=== PATIENT | female | born 1985 | race Caucasian/White ===

== ENCOUNTER 2019-04-13 20:35 | Inpatient (IN) | payer BC ==
[~2019-04-13] VITALS: Ht 170.2 cm; Wt 102.5 kg
[2019-04-13] MEDS ORDERED: TYLENOL W/CODEI1 TAB PO (20:41)
[2019-04-13 21:06] LABS: APPEARANCE CLEAR (CLEAR); BILIRUBIN NEGATIVE (NEGATIVE); COLOR YELLOW (YELLOW); GLUCOSE NEGATIVE (NEGATIVE); KETONE NEGATIVE (NEGATIVE); NITRITE NEGATIVE (NEGATIVE); PROTEIN TRACE mg/dL (NEGATIVE); UROBILINOGEN NORMAL (NORMAL)
[2019-04-13 21:08] LABS: BACTERIA FEW /hpf (NONE SEEN); EPITHELIAL CELLS 0-5 /hpf (0-5); HCG URINE NEGATIVE (NEGATIVE); MUCUS <1+ /lpf (NONE SEEN); RED CELLS - URINE 0-5 /hpf (0-5); WHITE CELLS - URINE 0-5 /hpf (0-5)
[2019-04-13 21:17] LABS: BASOPHILS 0.3 % (0-2); EOSINOPHILS 2.6 % (0-7); IMMATURE GRANULOCYTES 0.3 % (0-5); MCH 30.4 pg (26.0-34.0); MCHC 35.1 g/dL (31.0-37.0); MCV 86.7 fL (80.0-100.0); MEAN PLATELET VOLUME 8.9 fL (7.4-10.4); MONOCYTES 7.1 % (2-11); NEUTROPHILS 82.7 % (40-80); PLATELET COUNT 353 10x3/uL (130-400); RBC 4.27 10x6/uL (4.00-5.40); RDW 12.9 % (11.5-14.5); WBC 15.2 10x3/uL (4.8-10.8)
[2019-04-13 21:29] LABS: ALKALINE PHOSPHATASE 78 U/L (46-116); ALT (SGPT) 19 U/L (10-68); BILIRUBIN - TOTAL 0.41 mg/dL (0.2-1.3); CALC OSMOLALITY 270 mosm/kg (275-300); CALCIUM 8.5 mg/dL (8.5-10.1); CARBON DIOXIDE 26.2 mmol/L (21.0-32.0); CHLORIDE - SERUM 101 mmol/L (98-107); CREATININE - SERUM 0.9 mg/dL (0.6-1.3); GLUCOSE 106 mg/dL (74-106); POTASSIUM - SERUM 4.6 mmol/L (3.5-5.1); PROTEIN - SERUM 7.2 g/dL (6.4-8.2); SODIUM 135 mmol/L (136-145); UREA NITROGEN 14 mg/dL (7-18); eGFR NON AFRICAN AMERICAN 75 mL/min (90-120)
[2019-04-14] VITALS (7 sets, daily range): BP systolic 113–145; BP diastolic 65–84
--- NOTE | 2019-04-14 00:30 | NUR ---
RECEIVED PT FROM ER VIA WHEELCHAIR, ACCOMPAINIED BY SPOUSE AND STAFF. IV TO THE RT HAND INFUSING BOLUS OF NS AND ABX. SITE IS CLEAN WITHOUT SWELLING OR REDNESS. PT COMPLAINS OF 10/10 PAIN IN THE GROIN AREA AND IS TENDER TO THE RLQ, LLQ UPON PALPATION. FIRM MASSES NOTED AROUND PUBIC AREA, MORE PREDOMINANT ON THE LT SIDE. A/O WITH NO SIGNS OF ACUTE DISTRESS NOTED. EDUCATIED PT ON PAIN MEDS AND DIET. DENIES NEEDS AT THIS TIME. CONTINUE WITH PLAN OF CARE.
--- NOTE | 2019-04-14 02:34 | NUR ---
COMPLAINING OF PAIN AT IV SITE IN THE RT HAND WITH NO BLOOD RETURN. DC WITH CATH INTACT. RESITED IV TO THE LT FOREARM. CONTINUE WITH PLAN OF CARE.
[2019-04-14 05:40] LABS: BASOPHILS 0.2 % (0-2); EOSINOPHILS 2.3 % (0-7); HEMATOCRIT 35.2 % (36.0-48.0); HEMOGLOBIN 12.1 g/dL (12-16); IMMATURE GRANULOCYTES 0.3 % (0-5); LYMPHOCYTES 8.4 % (15-50); MCH 29.8 pg (26.0-34.0); MCHC 34.4 g/dL (31.0-37.0); MCV 86.7 fL (80.0-100.0); MEAN PLATELET VOLUME 8.8 fL (7.4-10.4); MONOCYTES 8.4 % (2-11); NEUTROPHILS 80.4 % (40-80); PLATELET COUNT 334 10x3/uL (130-400); RBC 4.06 10x6/uL (4.00-5.40); RDW 12.8 % (11.5-14.5); WBC 14.6 10x3/uL (4.8-10.8)
[2019-04-14 05:54] LABS: CALC OSMOLALITY 277 mosm/kg (275-300); CALCIUM 8.1 mg/dL (8.5-10.1); CARBON DIOXIDE 26.8 mmol/L (21.0-32.0); CHLORIDE - SERUM 106 mmol/L (98-107); CREATININE - SERUM 0.7 mg/dL (0.6-1.3); GLUCOSE 103 mg/dL (74-106); MAGNESIUM - SERUM 1.7 mg/dL (1.8-2.4); SODIUM 140 mmol/L (136-145); eGFR NON AFRICAN AMERICAN > 90 mL/min (90-120)
[2019-04-14 05:58] LABS: UREA NITROGEN 9 mg/dL (7-18)
--- NOTE | 2019-04-14 07:24 | NUR ---
PATIENT EASY TO WAKE. AT BEDSIDE. NO FURTHER NEEDS AT THIS TIME. CL IN REACH TM
--- NOTE | 2019-04-14 13:09 | NUR ---
SCD'S ON. TELEMETRY APPLIED RUNNING 97 SR. IV THERAPY CHANGED TO LEFT WRIST. CL IN PLACE FAMILY IN ROOM. WCTM
[2019-04-14 13:52] LABS: APTT 37.3 SECONDS (22.8-39.4); INR 1.1 (0.85-1.17); PROTIME 13.7 SECONDS (11.6-15.0)
[2019-04-14 16:35] LABS: ERYTHROCYTE SEDIMENTATION RATE 62 mm/hr (0-20)
[2019-04-15] VITALS: BP 141/77
--- NOTE | 2019-04-15 03:00 | NUR ---
PT C/O RIGHT HAND IV HURTING AFTER GETTING IT CAUGHT ON SOMETHING WHILE GOING TO THE BATHROOM. REMOVED IV CATHETER INTACT. RESITED 20G IV TO LEFT WRIST BY JUANCARLOS JARAMILLO. GAVE MORPHINE 4 MG IV PUSH FOR PAIN 03/09. NO OTHER NEEDS. WILL CONTINUE TO MONITOR.
[2019-04-15 05:00] VITALS: BP 119/71
[2019-04-15 06:29] LABS: BASOPHILS 0.3 % (0-2); EOSINOPHILS 2.3 % (0-7); HEMATOCRIT 35.1 % (36.0-48.0); HEMOGLOBIN 11.9 g/dL (12-16); IMMATURE GRANULOCYTES 0.3 % (0-5); MCH 29.2 pg (26.0-34.0); MCHC 33.9 g/dL (31.0-37.0); MONOCYTES 7.5 % (2-11); NEUTROPHILS 82.6 % (40-80); PLATELET COUNT 324 10x3/uL (130-400); RBC 4.08 10x6/uL (4.00-5.40); RDW 12.6 % (11.5-14.5); WBC 13.6 10x3/uL (4.8-10.8)
[2019-04-15 06:47] LABS: ALBUMIN 2.5 g/dL (3.4-5.0); ALKALINE PHOSPHATASE 66 U/L (46-116); ALT (SGPT) 14 U/L (10-68); BILIRUBIN - TOTAL 0.49 mg/dL (0.2-1.3); CALC OSMOLALITY 277 mosm/kg (275-300); CALCIUM 8.1 mg/dL (8.5-10.1); CARBON DIOXIDE 27.2 mmol/L (21.0-32.0); CHLORIDE - SERUM 106 mmol/L (98-107); CREATININE - SERUM 0.6 mg/dL (0.6-1.3); GLUCOSE 96 mg/dL (74-106); MAGNESIUM - SERUM 1.8 mg/dL (1.8-2.4); POTASSIUM - SERUM 3.9 mmol/L (3.5-5.1); PROTEIN - SERUM 6.4 g/dL (6.4-8.2); SODIUM 141 mmol/L (136-145); UREA NITROGEN 5 mg/dL (7-18); eGFR NON AFRICAN AMERICAN > 90 mL/min (90-120)
[2019-04-15 11:49] VITALS: BP 111/62
[2019-04-15 13:57] VITALS: Ht 170.2 cm; Wt 102.5 kg
--- NOTE | 2019-04-15 14:36 | MORECARE ---
CASE MANAGEMENT DISCHARGE SUMMARY PATIENT: MIRNA MALIN UNIT: [id number] ADM DATE: 04/13/19 AGE: 33 : [birth year] SEX: F ROOM/BED: D.2239 AUTHOR: JERSON PAIGE PHYSICIAN: REFERRING PHYSICIAN: LUI MCLEAN MD DATE OF SERVICE: 04/15/19 Discharge Plan Patient Name: MIRNA MALIN Facility: [facility]:[place] : 1985 Planned Disposition: Home Anticipated Discharge Date: Discharge Date: Expected LOS: Initial Reviewer: [email or web address] Initial Review Date: 04/15/2019 Generated: 04/15/19 3:36 pm Comments DCP- Discharge Planning Updated by [email or web address]: Rosaline Batista on 04/15/19 1:[address] Patient Name: MIRNA MALIN Admission Status: ER Accout number: [id number] Admission Date: 04-13-2019 : 1985 Admission Diagnosis: Attending: LUI MCLEAN Current LOS: 2 Anticipated DC Date: Planned Disposition: Home Primary Insurance: [employer] OUT OF STATE Discharge Planning Comments: CM met with patient at bedside after explaining CM role and obtaining verbal consent. CM discussed availability / needs of home health and medical equipment. Patient denies any discharge needs at this time. STATES PLANS TO DC TO HOME WITH . CM TO FOLLOW AND ASSIST NEEDED. Tar Heat Exchanger Cleaner: Rosaline Batista DCPIA - Discharge Planning Initial Assessment Updated by [email or web address]: Rosaline Batista on 04/15/19 2:29 pm * Is the patient Alert and Oriented? Yes * PCP MEGHNA * Pharmacy [facility] * Preadmission Environment Home with Family * ADLs Independent * Equipment None * Community resources currently utilized None * Additional services required to return to the preadmission environment? No * Can the patient safely return to the preadmission environment? Yes * Has this patient been hospitalized within the prior 30 days at any hospital? No Patient Name: MIRNA MALIN Page [phone] at 1436 All edits/amendments must be made on the electronic document DICTATION DATE: 04/15/19 1436 CANCELING AND CUTTING CONTROL CLERK: WASHINGOTN 04/15/19 1436 RPT#: [id number] DC DATE: STATUS: ADM IN [facility] [address] [place] [address] END OF REPORT
[2019-04-15 18:43] VITALS: BP 130/68
--- NOTE | 2019-04-15 18:45 | NUR ---
I have reviewed this patient and I concur with the Shift Assessment completed by the Licensed Practical Nurse today this shift.
[2019-04-15 19:53] VITALS: BP 129/72
--- NOTE | 2019-04-15 20:35 | OP ---
PATIENT NAME: MIRNA MALIN MEDICAL RECORD: [id number] :[birth year] LOCATION:D.MS Cruz2239 ADMISSION DATE:04/13/19 SURGEON: AXEL العلي MD DATE OF OPERATION: 04/15/2019 SURGEON: Axel العلي MD ANESTHESIA: General anesthesia by Baltazar Friedman. DIAGNOSES: Widespread lymphadenopathy, bladder wall thickening on the right side. Possible lymphoma. PROCEDURE: Cystoscopy and bladder biopsy. FINDINGS: Single ureteral orifices bilaterally. No papillary bladder tumors. However, there are some hilly irregularities on the right lateral wall. SPECIMENS: Right lateral bladder wall times 2, bladder dome times 1 biopsy. ESTIMATED BLOOD LOSS: Minimal. CLINICAL HISTORY: This is a 33-year-old female with a history of night sweats, fevers and widespread lymphadenopathy on CT scan. Dr. Rosales has performed a left inguinal lymph node biopsy. Her CT also shows thickening of the bladder wall on the right side. I will be performing a bladder biopsy to check for lymphoma infiltration into the bladder. SHE IS ALLERGIC TO PENICILLIN. She was given Levaquin IV secondary education professor to the OR. The patient has already been given general anesthetic. DESCRIPTION OF PROCEDURE: She was placed into lithotomy position and prepped and draped. A 21-Colombian cystoscope was placed into the bladder using a 70-degree lens. Sterile water was used for irrigation. Single ureteral orifices are seen. No papillary bladder tumors were seen. There was increased vascularity and a somewhat nodular appearance on the right bladder wall. The cold cup biopsy forceps were placed in 2 areas of the right lateral wall where these nodular areas were located, was obtained for biopsy. For comparison, I also obtained a sample of the dome of the bladder, which appeared to be normal. All the specimens were sent separately based on their location in formalin to pathology. The Bugbee electrode was then introduced and the biopsy sites were cauterized. The bladder was emptied through the cystoscope sheath and the bladder and the scope was removed entirely. The patient was awakened and brought back to the recovery room. TRANSINT:[id number] Voice Confirmation ID: [id number] DOCUMENT ID: [id number] AXEL العلي MD at 7594 CC: [id number] DICTATION DATE: 04/15/191819 STACK MATCHER: 04/15/192026 ADM IN [facility] [address] [place] [address]
--- NOTE | 2019-04-15 23:11 | NUR ---
1930) rec'd chge of shift walking rounds being assisted to bathroom by tolerating well.observed scant amt. bk. red bloody drainage on tissue when wiping with sm dk. red stringy clot observed.discussed not unusual after procedure when entering and exiting vagina.instructed to call nurse after urinating on order to assess urine voices understanding. will continue to monitor for any chges and follow current plan of care.
[2019-04-16 01:12] VITALS: BP 100/63
--- NOTE | 2019-04-16 02:21 | NUR ---
I have reviewed this patient and I concur with the Shift Assessment completed by the Licensed Practical Nurse today this shift.
[2019-04-16 04:56] VITALS: BP 124/74
[2019-04-16 06:12] LABS: BASOPHILS 0.4 % (0-2); EOSINOPHILS 2.5 % (0-7); HEMATOCRIT 33.5 % (36.0-48.0); HEMOGLOBIN 11.3 g/dL (12-16); IMMATURE GRANULOCYTES 0.4 % (0-5); LYMPHOCYTES 7.3 % (15-50); MCH 29.3 pg (26.0-34.0); MCHC 33.7 g/dL (31.0-37.0); MCV 86.8 fL (80.0-100.0); MONOCYTES 9.3 % (2-11); NEUTROPHILS 80.1 % (40-80); PLATELET COUNT 324 10x3/uL (130-400); RBC 3.86 10x6/uL (4.00-5.40); RDW 12.8 % (11.5-14.5); WBC 12.2 10x3/uL (4.8-10.8)
[2019-04-16 06:19] LABS: ALBUMIN 2.3 g/dL (3.4-5.0); ALKALINE PHOSPHATASE 64 U/L (46-116); ALT (SGPT) 17 U/L (10-68); BILIRUBIN - TOTAL 0.42 mg/dL (0.2-1.3); CALC OSMOLALITY 271 mosm/kg (275-300); CALCIUM 8.1 mg/dL (8.5-10.1); CARBON DIOXIDE 26.4 mmol/L (21.0-32.0); CHLORIDE - SERUM 102 mmol/L (98-107); CREATININE - SERUM 0.7 mg/dL (0.6-1.3); GLUCOSE 95 mg/dL (74-106); MAGNESIUM - SERUM 1.7 mg/dL (1.8-2.4); PROTEIN - SERUM 6.1 g/dL (6.4-8.2); SODIUM 137 mmol/L (136-145); eGFR NON AFRICAN AMERICAN > 90 mL/min (90-120)
[2019-04-16 06:20] LABS: UREA NITROGEN 8 mg/dL (7-18)
--- NOTE | 2019-04-16 07:30 | NUR ---
ALERT AND ORIENTED, RESTING IN BED. FAMILY AT BEDSIDE. NO C/O PAIN, MORPHINE WOOD PRESERVING PLANT LABORER NOT MANAGING PAIN, GIVEN NORCO 5 THIS AM ON PREVIOUS SHIFT FOR PAIN. NO S/S OF ACUTE DISTRESS NOTED. IV TO LEFT WRIST, NS INFUSING @ 75ML/HR. SITE PATENT WITHOUT REDNESS OR SWELLING. POD #1 EXCISION LEFT GROIN AND CYSTOSCOPY. SCDS ON. ON ELECTROLYTE PROTOCOL, MAG 1.7 THIS AM. PT DENIES ANY NEEDS AT THIS TIME. CALL LIGHT IN REACH. WILL CONTINUE TO MONITOR.
[2019-04-16 08:31] VITALS: BP 116/63
[2019-04-16 12:09] LABS: HEPATITIS C ANTIBODY <0.1 S/CO RAT (0.0-0.9)
[2019-04-16 12:27] VITALS: BP 112/66
[2019-04-16 16:37] VITALS: BP 146/60
--- NOTE | 2019-04-16 20:16 | NUR ---
chge of shift walking rounds patient not in room previous nurse went outside with on return will assess and continue to monitor and follow current plan of care
[2019-04-16 20:18] VITALS: BP 153/93
[2019-04-17 00:44] VITALS: BP 130/78
--- NOTE | 2019-04-17 02:39 | NUR ---
I have reviewed this patient and I concur with the Shift Assessment completed by the Licensed Practical Nurse today this shift.
[2019-04-17 04:43] VITALS: BP 138/53
[2019-04-17 05:47] LABS: BASOPHILS 0.3 % (0-2); EOSINOPHILS 3.3 % (0-7); HEMATOCRIT 31.8 % (36.0-48.0); HEMOGLOBIN 11.2 g/dL (12-16); IMMATURE GRANULOCYTES 0.4 % (0-5); LYMPHOCYTES 7.3 % (15-50); MCH 30.4 pg (26.0-34.0); MCHC 35.2 g/dL (31.0-37.0); MCV 86.4 fL (80.0-100.0); MEAN PLATELET VOLUME 8.6 fL (7.4-10.4); MONOCYTES 9.4 % (2-11); NEUTROPHILS 79.3 % (40-80); PLATELET COUNT 294 10x3/uL (130-400); RBC 3.68 10x6/uL (4.00-5.40); RDW 12.8 % (11.5-14.5); WBC 11.6 10x3/uL (4.8-10.8)
[2019-04-17 06:09] LABS: BETA-2 MICROGLOBULIN 1.4 mg/L (0.6-2.4)
[2019-04-17 06:13] LABS: ALBUMIN 2.2 g/dL (3.4-5.0); ALKALINE PHOSPHATASE 60 U/L (46-116); ALT (SGPT) 17 U/L (10-68); CALC OSMOLALITY 275 mosm/kg (275-300); CALCIUM 8.1 mg/dL (8.5-10.1); CARBON DIOXIDE 27.3 mmol/L (21.0-32.0); CHLORIDE - SERUM 104 mmol/L (98-107); CREATININE - SERUM 0.6 mg/dL (0.6-1.3); GLUCOSE 91 mg/dL (74-106); MAGNESIUM - SERUM 1.7 mg/dL (1.8-2.4); PROTEIN - SERUM 5.5 g/dL (6.4-8.2); SODIUM 139 mmol/L (136-145); UREA NITROGEN 7 mg/dL (7-18); eGFR NON AFRICAN AMERICAN > 90 mL/min (90-120)
--- NOTE | 2019-04-17 07:00 | NUR ---
PATIENT RECIEVED RESTING IN BED WITH EYES CLOSED. NO NEEDS VOICED. VOIDING WITHOUT DIFFICULTY. BLOODY DRAINAGE TO BEDSIDE DRAINAGE BAG FROM NEPHROSTOMY.CL IN REACH
--- NOTE | 2019-04-17 07:00 | NUR ---
PATIENT RECIEVED RESTING IN BED, REPORTS PAIN TO BILAT GROIN. WILL GIVE NORCO WHEN DUE. CL IN REACH
[2019-04-17 08:46] VITALS: BP 141/71
--- NOTE | 2019-04-17 10:59 | MORECARE ---
CASE MANAGEMENT DISCHARGE SUMMARY PATIENT: MIRNA MALIN UNIT: [id number] ADM DATE: 04/13/19 AGE: 33 : [birth year] SEX: F ROOM/BED: D.2239 AUTHOR: ROYALDOC PHYSICIAN: REFERRING PHYSICIAN: LUI MCLEAN MD DATE OF SERVICE: 04/17/19 Discharge Plan Patient Name: MIRNA MALIN Facility: [facility]:[place] : 1985 Planned Disposition: Home Anticipated Discharge Date: 04/17/19 Discharge Date: Expected LOS: 4 Initial Reviewer: [email or web address] Initial Review Date: 04/15/2019 Generated: 04/17/19 11:58 am Comments DCP- Discharge Planning Updated by [email or web address]: Rosaline Batista on 04/17/19 9:[address] Patient Name: MIRNA MALIN Encounter No: [id number] : 1985 Primary Insurance: [employer] OUT OF [facility] Anticipated DC Date: Planned Disposition: Home External Planned Provider: : DCP follow-up note: Patient and family in agreement with discharge plan. No changes to plan. CM SPOKE WITH DR. ARIAS AND SHE STATES PATIENT CAN FOLLOW UP WITH HER OUTPATIENT. Case management will follow and assist as needed. Rosaline Batista DCP- Discharge Planning Updated by [email or web address]: Rosaline Batista on 04/15/19 1:[address] Patient Name: MIRNA MALIN Admission Status: ER Accout number: [id number] Admission Date: 04-13-2019 : 1985 Admission Diagnosis: Attending: LUI MCLEAN Current LOS: 2 Anticipated DC Date: Planned Disposition: Home Primary Insurance: [employer] OUT OF STATE Discharge Planning Comments: CM met with patient at bedside after explaining CM role and obtaining verbal consent. CM discussed availability / needs of home health and medical equipment. Patient denies any discharge needs at this time. STATES PLANS TO DC TO HOME WITH . CM TO FOLLOW AND ASSIST NEEDED. Coloring Room Man: Rosaline Batista DCPIA - Discharge Planning Initial Assessment Updated by [email or web address]: Rosaline Batista on 04/15/19 2:29 pm * Is the patient Alert and Oriented? Yes * PCP FARRO * Pharmacy [facility] * Preadmission Environment Home with Family * ADLs Independent * Equipment None * Community resources currently utilized None * Additional services required to return to the preadmission environment? No * Can the patient safely return to the preadmission environment? Yes * Has this patient been hospitalized within the prior 30 days at any hospital? No Last DP export: 04/15/19 1:36 p Patient Name: MIRNA MALIN Page [phone] at 1059 All edits/amendments must be made on the electronic document DICTATION DATE: 04/17/191057 BALLISTIC TECHNICIAN: W[place] 04/17/19 1058 RPT#: [id number] DC DATE: STATUS: ADM IN [facility] [address] [place] [address] END OF REPORT
[2019-04-17] MEDS ORDERED: PROTONIX40 MG PO (11:28)
[2019-04-17] MEDS ORDERED: MIRALAX17 GM PO (11:28)
[2019-04-17] MEDS ORDERED: COLACE100 MG PO (11:28)
[2019-04-17] MEDS ORDERED: HYDROCODON-ACE1 EAC7 PO ×3 (11:29→12:11)
[2019-04-17] MEDS ORDERED: VIBRAMYCIN 100100 MG PO (11:29)
[2019-04-17] MEDS ORDERED: OMNICEF300 MG PO (11:29)
[2019-04-17 11:44] VITALS: BP 158/71
--- NOTE | 2019-04-17 12:58 | NUR ---
IV REMOVED WITH NO REDNESS OR EDEMA AT SITE. DISCHARGE INSTRUCTIONS GIVEN WITH PATINET VOICING UNDERSTANDING. PATINET TAKEN BY WHEELCHAIR TO PRIVATE CAR
[2019-04-17 13:10] LABS: EHRLICHIA CHAFF IGG Negative (Neg:<1:64); EHRLICHIA CHAFF IGM Negative (Neg:<1:20); HGE IGG TITER Negative (Neg:<1:64); HGE IGM TITER Negative (Neg:<1:20); RMSF IGM 0.62 index (0.00-0.89)
--- NOTE | 2019-04-17 17:31 | MORECARE ---
CASE MANAGEMENT DISCHARGE SUMMARY PATIENT: MIRNA MALIN UNIT: [id number] ADM DATE: 04/13/19 AGE: 33 : [birth year] SEX: F ROOM/BED: D.2239 AUTHOR: ROYAL,DOC PHYSICIAN: REFERRING PHYSICIAN: LUI MCLEAN MD DATE OF SERVICE: 04/17/19 Discharge Plan Patient Name: MIRNA MALIN Facility: [facility]:[place] : 1985 Planned Disposition: Home Anticipated Discharge Date: 04/17/19 Discharge Date: 04/17/2019 Expected LOS: 4 Initial Reviewer: [email or web address] Initial Review Date: 04/15/2019 Generated: 04/17/19 6:30 pm Comments DCP- Discharge Planning Updated by [email or web address]: Rosaline Batista on 04/17/19 9:[address] Patient Name: IMRNA MALIN Encounter No: [id number] : 1985 Primary Insurance: [employer] OUT OF STATE Anticipated DC Date: Planned Disposition: Home External Planned Provider: : DCP follow-up note: Patient and family in agreement with discharge plan. No changes to plan. CM SPOKE WITH DR. ARIAS AND SHE STATES PATIENT CAN FOLLOW UP WITH HER OUTPATIENT. Case management will follow and assist as needed. Rosaline Batista DCP- Discharge Planning Updated by [email or web address]: Rosaline Batista on 04/15/19 1:[address] Patient Name: MIRNA MALIN Admission Status: ER Accout number: [id number] Admission Date: 04-13-2019 : 1985 Admission Diagnosis: Attending: LUI MCLEAN Current LOS: 2 Anticipated DC Date: Planned Disposition: Home Primary Insurance: [employer] OUT OF STATE Discharge Planning Comments: CM met with patient at bedside after explaining CM role and obtaining verbal consent. CM discussed availability / needs of home health and medical equipment. Patient denies any discharge needs at this time. STATES PLANS TO DC TO HOME WITH . CM TO FOLLOW AND ASSIST NEEDED. Bible Worker: Rosaline Batista DCPIA - Discharge Planning Initial Assessment Updated by [email or web address]: Rosaline Batista on 04/15/19 2:29 pm * Is the patient Alert and Oriented? Yes * PCP FARRO * Pharmacy [facility] * Preadmission Environment Home with Family * ADLs Independent * Equipment None * Community resources currently utilized None * Additional services required to return to the preadmission environment? No * Can the patient safely return to the preadmission environment? Yes * Has this patient been hospitalized within the prior 30 days at any hospital? No Last DP export: 04/17/19 9:59 a Patient Name: MIRNA MALIN Page 35712 at 1731 All edits/amendments must be made on the electronic document DICTATION DATE: 04/17/191729 ASSEMBLIES AND INSTALLATIONS INSPECTOR: WASHINGTON 04/17/191729 RPT#: [id number] DC DATE:04/17/19 STATUS: DIS IN [facility] [address] [place] [address] END OF REPORT
[2019-04-18 14:09] LABS: F. TULARENSIS - IGG Negative (Negative); F. TULARENSIS - IGM Negative (Negative)
--- NOTE | 2019-05-01 09:56 | OP ---
PATIENT NAME: MIRNA MALIN MEDICAL RECORD: [id number] :[birth year] LOCATION:D.MS Cruz2239 ADMISSION DATE:04/13/19 SURGEON: AXEL CHAU MD DATE OF OPERATION: 04/15/2019 PREOPERATIVE DIAGNOSES: Bulky adenopathy involving the retroperitoneum as well as both groins suspicious for malignant neoplasm. POSTOPERATIVE DIAGNOSES: Bulky adenopathy involving the retroperitoneum as well as both groins suspicious for malignant neoplasm. PROCEDURE: Left groin excisional lymph node biopsy. SURGEON: Axel Chau MD PRODUCTION MINER: None. BLOOD LOSS: Please see the anesthesia sheet. COMPLICATIONS: None. The risks, possible complications, and alternatives to the procedure were explained to the patient. She elects to proceed. I specifically informed her that this would not be a curative procedure, but this is a procedure in order to obtain tissue through which we can perform a pathologic examinations and obtaining a diagnosis. I specifically discussed with her the probability of a lymphocele and the possibility of lymphedema involving the extremity. In examining the patient, I felt that our best target would be a cluster of lymph nodes in the left groin. During the operation, I identified that there was actually a number of matted nodes in the left groin. These were taken out with very little blood loss. OPERATIVE COURSE: The patient was conveyed to the operating room electively on 04/15/2019. General anesthesia was induced by the anesthesia staff. The left groin and thigh was sterilely prepped and draped. An incision was accomplished in the left groin crease. I dissected down with the Harmonic scalpel to a cluster of lymph nodes. Some blunt dissection over the lymph nodes allowed me to mobilize them. I then used the Harmonic scalpel to dissect them free from surrounding connective tissue and also to divide the vascular structures and the lymphatic structures at the fabrizio other lymph nodes. I am uncertain how many matted nodes came down out together. It is likely that there were several. Hemostasis was achieved with the Harmonic scalpel. The subdermis was approximated with interrupted 3-0 Vicryls. The skin was approximated with a running intracuticular 3-0 Vicryl. A sterile dressing was applied. At no time was there any apparent damage to nervous structure or a major vascular structure. The patient was then extubated and conveyed to post-anesthesia care unit where she was in stable condition. TRANSINT:[id number] Voice Confirmation ID: [id number] DOCUMENT ID: [id number] OPERATIVE REPORT [id number] MIRNA MALIN, AXEL VALENCIA at 0956 CC: [id number] DICTATION DATE: 04/30/191923 GROUNDS/MAINTENANCE SPECIALIST: 05/01/19 0359 DIS IN 04/17/19 [facility] [address] [id number]
== END 2019-04-17 12:59 | disposition home or self-care (01) | DRG 824 ==
LOC: D.ER 20:35 → D.MS 23:05
PROVIDERS: Family Medicine; Internal Medicine Hematology & Oncology; Surgery; Urology; ADMIT Internal Medicine Nephrology; ATTEND Internal Medicine Nephrology
PROC: 07BJ0ZX Excision of Left Inguinal Lymphatic, Open Approach, Diagnostic (ICD-10-PCS; principal; 2019-04-15 13:00)
PROC: 0TBB8ZX Excision of Bladder, Via Natural or Artificial Opening Endoscopic, Diagnostic (ICD-10-PCS; 2019-04-15 13:00)
DX: C82.95 Follicular lymphoma, unspecified, lymph nodes of inguinal region and lower limb (principal); F17.203 Nicotine dependence unspecified, with withdrawal; D72.829 Elevated white blood cell count, unspecified; R73.03 Prediabetes; G62.9 Polyneuropathy, unspecified; F12.929 Cannabis use, unspecified with intoxication, unspecified; D64.9 Anemia, unspecified; R50.9 Fever, unspecified; E28.2 Polycystic ovarian syndrome

== ENCOUNTER 2019-04-20 09:25 | Emergency (ER) | payer BC ==
[~2019-04-20 09:25] MED LIST: COLACE100 MG PO; HYDROCODON-ACE1 EAC7 PO; MIRALAX17 GM PO; OMNICEF300 MG PO; PROTONIX40 MG PO; TYLENOL W/CODEI1 TAB PO; VIBRAMYCIN 100100 MG PO
[2019-04-20 09:34] VITALS: Ht 170.2 cm
[2019-04-20 10:09] LABS: BASOPHILS 0.5 % (0-2); EOSINOPHILS 2.4 % (0-7); HEMATOCRIT 32.6 % (36.0-48.0); IMMATURE GRANULOCYTES 0.8 % (0-5); LYMPHOCYTES 6.6 % (15-50); MCH 29.4 pg (26.0-34.0); MCHC 33.7 g/dL (31.0-37.0); MCV 87.2 fL (80.0-100.0); MEAN PLATELET VOLUME 8.6 fL (7.4-10.4); MONOCYTES 7.3 % (2-11); NEUTROPHILS 82.4 % (40-80); PLATELET COUNT 348 10x3/uL (130-400); RBC 3.74 10x6/uL (4.00-5.40); RDW 12.9 % (11.5-14.5); WBC 13.1 10x3/uL (4.8-10.8)
[2019-04-20 10:22] LABS: ALBUMIN 2.5 g/dL (3.4-5.0); ALKALINE PHOSPHATASE 67 U/L (46-116); ALT (SGPT) 15 U/L (10-68); AMYLASE - SERUM 30 U/L (25-115); BILIRUBIN - TOTAL 0.32 mg/dL (0.2-1.3); CALC OSMOLALITY 276 mosm/kg (275-300); CALCIUM 8.3 mg/dL (8.5-10.1); CARBON DIOXIDE 27.9 mmol/L (21.0-32.0); CHLORIDE - SERUM 105 mmol/L (98-107); CREATININE - SERUM 0.7 mg/dL (0.6-1.3); GLUCOSE 87 mg/dL (74-106); LIPASE 77 U/L (73-393); POTASSIUM - SERUM 4.4 mmol/L (3.5-5.1); PROTEIN - SERUM 6.2 g/dL (6.4-8.2); SODIUM 140 mmol/L (136-145); UREA NITROGEN 11 mg/dL (7-18); eGFR NON AFRICAN AMERICAN > 90 mL/min (90-120)
[2019-04-20 10:32] LABS: APPEARANCE CLEAR (CLEAR); BILIRUBIN NEGATIVE (NEGATIVE); COLOR YELLOW (YELLOW); GLUCOSE NEGATIVE (NEGATIVE); KETONE NEGATIVE (NEGATIVE); NITRITE NEGATIVE (NEGATIVE); PROTEIN NEGATIVE (NEGATIVE); SPECIFIC GRAVITY 1.015 (1.005-1.020); UROBILINOGEN NORMAL (NORMAL)
[2019-04-20 10:33] LABS: EPITHELIAL CELLS 0-5 /hpf (0-5); WHITE CELLS - URINE 0-5 /hpf (NEGATIVE)
[2019-04-20] MEDS ORDERED: EC-NAPROSYN500 MG PO (12:46)
[2019-04-20 12:53] VITALS: BP 125/78
== END 2019-04-20 12:53 | disposition home or self-care (01) ==
LOC: D.ER 09:25
PROVIDERS: Family Medicine
DX: G89.18 Other acute postprocedural pain (principal)

== ENCOUNTER 2019-05-09 08:31 | Outpatient (CLI) | payer BC, OTHER ==
[~2019-05-09] VITALS: Ht 170.2 cm; Wt 100.0 kg
[~2019-05-09 08:31] MED LIST changes: +EC-NAPROSYN500 MG PO
[2019-05-09] MEDS ORDERED: IBUPROFEN200 MG PO (09:26)
[2019-05-09] MEDS ORDERED: DURAGESIC1 PATCH .7 TRANSDERM (09:26)
[2019-05-09 09:27] VITALS: BP 115/67; Ht 170.2 cm; Wt 100.0 kg
[2019-05-09 09:36] LABS: HCG URINE NEGATIVE (NEGATIVE)
--- NOTE | 2019-05-09 09:56 | NUR ---
According to the Suicide Risk Assessment is low and the patient does not need a 1:1 observation.
[2019-05-09 10:40] LABS: BASOPHILS 0.4 % (0-2); EOSINOPHILS 2.1 % (0-7); HEMATOCRIT 32.3 % (36.0-48.0); HEMOGLOBIN 10.5 g/dL (12-16); IMMATURE GRANULOCYTES 0.5 % (0-5); LYMPHOCYTES 6.6 % (15-50); MCH 28.1 pg (26.0-34.0); MCHC 32.5 g/dL (31.0-37.0); MCV 86.4 fL (80.0-100.0); MEAN PLATELET VOLUME 8.3 fL (7.4-10.4); MONOCYTES 6.5 % (2-11); NEUTROPHILS 83.9 % (40-80); PLATELET COUNT 302 10x3/uL (130-400); RBC 3.74 10x6/uL (4.00-5.40); RDW 13.2 % (11.5-14.5); WBC 15.4 10x3/uL (4.8-10.8)
[2019-05-09 10:53] LABS: CALC OSMOLALITY 280 mosm/kg (275-300); CALCIUM 8.2 mg/dL (8.5-10.1); CHLORIDE - SERUM 104 mmol/L (98-107); CREATININE - SERUM 0.8 mg/dL (0.6-1.3); GLUCOSE 96 mg/dL (74-106); INR 1.11 (0.85-1.17); POTASSIUM - SERUM 4.2 mmol/L (3.5-5.1); PROTIME 13.8 SECONDS (11.6-15.0); SODIUM 141 mmol/L (136-145); UREA NITROGEN 12 mg/dL (7-18); eGFR NON AFRICAN AMERICAN 86 mL/min (90-120)
[2019-05-09 10:54] LABS: APTT 40.8 SECONDS (22.8-39.4)
--- NOTE | 2019-05-09 12:49 | NUR ---
1222 VITAL SIGNS ARE BEING DOCUMENTED ON POST PROCEDURE FORM IN CHART.
--- NOTE | 2019-05-09 16:30 | NUR ---
1515 IV DC'D. CATHETER TIP INTACT. NO BLEEDING AT SITE. BANDAID APPLIED. PT STARTED DRY HEAVING AFTER IV REMOVED. EMESIS FOLLOWED. PT STATES SHE THINKS SHE GOT SICK FROM IV COMING OUT. WAS NOT ABLE TO GET VS DUE HER SITTING UP AND VOMITING. PT STATES THAT SHE VOMITS AT HOME TOO. STATES SHE DOES NOT HAVE ANY MEDICINE FOR NAUSEA AT HOME. 1520 PT IS FEELING BETTER. COLOR GOOD. PT ASKING IF A PRESCIPTION CAN BE CALLED IN FOR NAUSEA/VOMITING. B/P 130/70 AT PRESENT.
--- NOTE | 2019-05-09 16:55 | NUR ---
1644 PT WAS WANTING TO GO HOME BUT STARTED VOMITING AGAIN. ATTEMPTS EARLIER TO REACH BRISSA ARIAS AND DANYEL UNSUCCESSFUL. / WILL ATTEMPT TO REACH EITHER DR ARIAS OR DR MONTAÑO WITH UPDATE ON PT'S NAUSEA AND VOMITING.
--- NOTE | 2019-05-09 16:56 | NUR ---
CALL PLACED TO DR MONTAÑO REGARDING PATIENT VOMITING TWICE SINCE IV DC'D. DR MONTAÑO STATES "IT IS BECAUSE OF HER LYMPHOMA LIKELY. SHE MAY STILL BE DISCHARGED, SHE JUST NEEDS TO CALL DR ARIAS TOMORROW AND GET A PRESCRIPTION FOR SOMETHING."
--- NOTE | 2019-05-09 17:05 | NUR ---
PATIENT WANTS TO GO HOME, NOT VOMITING NOW, SIPPING ON [place]. PATIENT DISCHARGED VIA WHEELCHAIR TO PRIVATE VEHICLE WITH MOTHER AND SPOUSE
--- NOTE | 2019-05-09 17:17 | NUR ---
DR ARIAS RETURNS CALL REGARDING PATIENT'S NAUSEA, DR ARIAS STATES "PLEASE CALL IN A PRESCRIPTION FOR ZOFRAN 4 MG ORALLY Q6H PRN NAUSEA #30." THIS RX CALLED TO [facility] BY THIS NURSE AT THIS TIME, RX GIVEN VERBALLY TO TRINA SÁNCHEZ
== END 2019-05-09 17:05 | disposition home or self-care (01) ==
LOC: D.CT 08:31
PROVIDERS: Specialist; ATTEND Internal Medicine Hematology & Oncology
DX: C82.95 Follicular lymphoma, unspecified, lymph nodes of inguinal region and lower limb (principal)

== ENCOUNTER 2019-06-13 08:44 | Day surgery (SDC) | payer BC, OTHER ==
[~2019-06-13] VITALS: Ht 170.2 cm; Wt 104.3 kg
[~2019-06-13 08:44] MED LIST changes: +DURAGESIC1 PATCH .7 TRANSDERM; +IBUPROFEN200 MG PO
[2019-06-13 09:45] LABS: HEMATOCRIT 31.9 % (36.0-48.0); MCH 25.7 pg (26.0-34.0); MCHC 31.3 g/dL (31.0-37.0); MEAN PLATELET VOLUME 8.7 fL (7.4-10.4); PLATELET COUNT 490 10x3/uL (130-400); RBC 3.89 10x6/uL (4.00-5.40); RDW 15.7 % (11.5-14.5)
[2019-06-13] MEDS ORDERED: ZOFRAN4 MG PO (09:58)
[2019-06-13] MEDS ORDERED: CELEXA10 MG PO (09:58)
[2019-06-13] MEDS ORDERED: PHENERGAN25 M1 PO (09:58)
[2019-06-13 09:59] LABS: CALC OSMOLALITY 271 mosm/kg (275-300); CALCIUM 9.8 mg/dL (8.5-10.1); CARBON DIOXIDE 30.6 mmol/L (21.0-32.0); CHLORIDE - SERUM 97 mmol/L (98-107); CREATININE - SERUM 0.8 mg/dL (0.6-1.3); GLUCOSE 102 mg/dL (74-106); POTASSIUM - SERUM 4.1 mmol/L (3.5-5.1); SODIUM 137 mmol/L (136-145); UREA NITROGEN 7 mg/dL (7-18); eGFR NON AFRICAN AMERICAN 86 mL/min (90-120)
[2019-06-13 10:06] VITALS: BP 138/79; Ht 170.2 cm; Wt 104.3 kg
[2019-06-13 10:07] LABS: APTT 40.1 SECONDS (22.8-39.4); INR 1.28 (0.85-1.17); PROTIME 15.4 SECONDS (11.6-15.0)
[2019-06-13 10:18] LABS: HCG URINE NEGATIVE (NEGATIVE)
[2019-06-13] MEDS ORDERED: ROXICODONE15 MG PO (13:00)
[2019-06-13 14:00] LABS: BASOPHILS 1 % (0-2); EOSINOPHILS 1 % (0-7); LYMPHOCYTES 4 % (15-50); MONOCYTES 10 % (2-11); NEUTROPHILS 72 % (40-80); PLATELET ESTIMATE INCREASED
--- NOTE | 2019-06-13 15:15 | NUR ---
PT DC INSTRUCTIONS REVIEWED AT THIS TIME, PT VERBALIZES UNDERSTANDING AND AGREES. PT IV REMOVED AT THIS TIME, INTACT, NO REDNESS OR SWELLING NOTED AT SITE.
--- NOTE | 2019-06-13 15:20 | NUR ---
PT LEAVING OPS AT THIS TIME VIA WC NAD NOTED.
--- NOTE | 2019-06-13 16:08 | NUR ---
DC INSTRUCTIONS GIVEN TO PT/FAMILY. STATE UNDERSTANDING. DC'D IV CATH FULLY INTACT. PT LEFT UNIT VIA WC AT 1530
--- NOTE | 2019-06-14 11:36 | OP ---
PATIENT NAME: MIRNA MALIN MEDICAL RECORD: [id number] :[birth year] LOCATION:D.OPS ADMISSION DATE: SURGEON: JOANA FARRELL MD DATE OF OPERATION: 06/13/2019 PREOPERATIVE DIAGNOSIS: Lymphoma. POSTOPERATIVE DIAGNOSIS: Lymphoma. PROCEDURE: 1. Left subclavian vein port placement. 2. Fluoroscopic interpretation. SURGEON: Joana Farrell MD REPORT OF PROCEDURE: The patient's left chest was prepped and draped in sterile fashion. A needle was used to cannulate the left subclavian vein and a guidewire was advanced with ease. Fluoro was used to note that the wire was in good position in the venous system. A skin incision was made on the left superior lateral chest and a subcutaneous pouch was made over the pectoral fascia. The catheter was tunneled between this pouch and the wire exit site. The port was then sutured to the pectoral fascia using interrupted 2-0 Prolenes. The catheter was cut with a beveled tip at 23 cm. The dilator trocar device was placed over the wire and the wire and dilator were removed. The catheter tip was advanced through the trocar and the trocar was then removed. The catheter tip was noted to be resting in good position in the superior vena cava. At this point, the catheter was flushed with heparinized saline and there was good blood return noted. The subcutaneous tissues were reapproximated with interrupted 3-0 Vicryl and the skin was closed with running subcutaneous 5-0 Monocryl. COMPLICATIONS: None. CONDITION: Stable. ANESTHESIA: General endotracheal. BLOOD LOSS: Minimal. TRANSINT:[id number] Voice Confirmation ID: [id number] DOCUMENT ID: [id number] JOANA FARRELL MD at 1136 CC: NEVILLE ARIAS MD [id number] DICTATION DATE: 06/13/19 1303 SOLUTION MAKE UP OPERATOR: 06/13/19 1310 [facility] 06/13/[id number] [place] [address]
== END 2019-06-13 15:20 | disposition home or self-care (01) ==
LOC: D.OPS 08:44
PROVIDERS: Anesthesiology; ATTEND Surgery
DX: C85.90 Non-Hodgkin lymphoma, unspecified, unspecified site (principal)

== ENCOUNTER → 2019-06-18 13:39 | Outpatient (CLI) | payer BC ==
[2019-06-13 10:06] VITALS: BMI 36.1
--- NOTE | ~2019-06-18 | HEMODYNAMI ---
PATIENT:MIRNA MALIN MEDICAL RECORD: [id number] : [birth year] LOCATION:DJUAN DIEGO ADMISSION DATE: 06/18/19 Generatedon:06/18/201914:45 Patient name: MIRNA MALIN Patient #: [id number] SSN: : 1985 Date of study: 06/18/2019 Page: Of Hemodynamic Procedure Report Patient Data Patient Demographics Procedure consent was obtained First Name: MIRNA Gender: Female Last Name: DEA : 1985 Middle Initial: C Age: 33 year(s) Patient #: [id number] Race: Unknown Additional ID: [id number] Contact details [address]: [address] [place] [address] State: [place] City: [place] Zip code: [address] Admission Admission Data Admission Date: 06/18/2019 Admission Time: 13:39 Procedure Procedure Types Cath Procedure Peripheral Cath Diagnostic Procedure Heel Seat Fitter Peripheral Procedures Miscellaneous Cathetergram Procedure Description Procedure Date Procedure Date: 06/18/2019 Procedure Start Time: 14:09 Procedure Staff Name Function Serjio Elliott MD Performing Physician Mimi Montejo RT Dog Show Judge Procedure Medications Medication Administration Route Dosage unlisted medication 2 mg Hemodynamics Rest Pre Cath Intra NCS Post Cath Medications Time Medication Route Dose Verified Delivered Reason Notes Effectiven ess by by 14:19:55 cathflo port 2mg Serjio Bassett Per Earl Elliott physician MD VALENCIA Procedure Log Time Note 14:00:04 Time tracking: Regular hours (M-F 7:00 - 5:00) 14:07:28 Patient received from Other to IR Alert and oriented. Tansferred to table in Supine position. 14:07:32 Signed procedure consent form obtained from patient. 14:07:35 - 14:07:41 Pre-procedure instructions explained to patient. 14:07:42 Pre-op teaching completed and patient verbalized understanding. 14:07:45 Family in waiting room. 14:07:51 Is the patient allergic to Iodine/contrast media? No. 14:08:17 Physician arrived 14:08:18 --------ALL STOP TIME OUT------ 14:08:20 Final Timeout: patient, procedure, and site verified with staff and physician. All members of the team are in agreement. 14:09:49 Procedure started. 14:09:49 Full Disclosure recording started 14:16:59 8cc's of isovue 300 injected into port. 2mg of cathflo injected with a dwell time of 20 minutes. 14:19:55 cathflo 2mg port was administered by Serjio Elliott MD; Per physician; Verbal order read back and verified. 14:43:50 an additional 8 cc's of isovue 300 was injected in the port post cathflo. flow was improved. 14:43:55 Procedure ended.(Physican Out) 14:45:17 Procedure and supply charges have been captured, reviewed, submitted an d are correct. Signature Audit [place]oto Stage Time Signature Unsigned Intra-Procedure 06/18/2019 Mimi Montejo 2:45:36 PM RT(R) [facility] [address] [place] [address]
[~2019-06-18 13:39] MED LIST changes: +CELEXA10 MG PO; +PHENERGAN25 M1 PO; +ROXICODONE15 MG PO; +ZOFRAN4 MG PO
== END | disposition home or self-care (01) ==
LOC: D.SP 13:39
PROVIDERS: ATTEND Internal Medicine Hematology & Oncology
DX: C82.95 Follicular lymphoma, unspecified, lymph nodes of inguinal region and lower limb (principal); T82.898A Other specified complication of vascular prosthetic devices, implants and grafts, initial encounter